=== PATIENT | male | born 1965 | race African-American/Black ===

== ENCOUNTER 2017-10-12 10:35 | Emergency (ER) | payer MEDICAID, OTHER ==
[~2017-10-12] VITALS: Ht 180.3 cm; Wt 90.0 kg
[2017-10-12] MEDS ORDERED: LORAZEPAM 2MG/ML CPJ IM ONE (12:45)
[2017-10-12 13:19] LABS: BASOPHILS % 0.7 % (0.0-2.0); EOSINOPHILS % 0.1 % (0.0-5.0); HEMATOCRIT. 41.1 % (42.0-52.0); HEMOGLOBIN. 13.5 g/dL (14.0-18.0); LYMPHOCYTES % 21.2 % (20.0-50.0); MEAN CORPUSCULAR HEMOGLOBIN 28.5 pg (28.0-32.0); MEAN CORPUSCULAR VOLUME 86.6 fL (80.0-94.0); MEAN PLATELET VOLUME 7.7 fl (7.4-10.4); MONOCYTES % 5.9 % (2.0-8.0); NEUTROPHILS % 72.1 % (40.0-76.0); PLATELET 335 x1000/uL (130-400); RED BLOOD CELL COUNT 4.75 mill/uL (4.7-6.1); RED CELL DISTRIBUTION WIDTH 13.5 % (11.6-14.6)
[2017-10-12 13:24] LABS: CHLORIDE 107 mEq/L (98-107)
[2017-10-12 13:33] LABS: ETHANOL BLOOD < 10 mg/dL
[2017-10-12 14:15] VITALS: BP 125/70
== END 2017-10-12 14:34 | disposition home or self-care (01) ==
LOC: ER 11:05
DX: Z00.00 Encounter for general adult medical examination without abnormal findings (principal); F17.200 Nicotine dependence, unspecified, uncomplicated
CPT/HCPCS: 36415; 71045; 80053; 80307; 80329; 85025; 96372; 99285; G0482; J2060

== ENCOUNTER 2018-05-17 03:41 | Emergency (ER) | payer MEDICAID ==
[~2018-05-17] VITALS: Ht 180.3 cm; Wt 80.0 kg
[2018-05-17] MEDS ORDERED: ONDANSETRON 4MG ODT PO STA (06:29)
[2018-05-17] MEDS ORDERED: IBUPROFEN 600MG TABLET PO STA (06:29)
[2018-05-17] MEDS ORDERED: FAMOTIDINE 20MG TABLET PO ONE (06:30)
[2018-05-17 07:16] LABS: CLARITY URINE CLEAR (CLEAR); COLOR URINE YELLOW (YELLOW); KETONES URINE NEGATIVE (NEGATIVE); LEUKOCYTE ESTERASE URINE NEGATIVE (NEGATIVE); NITRITE URINE NEGATIVE (NEGATIVE); OCCULT BLOOD URINE TRACE (NEGATIVE); PROTEIN URINE NEGATIVE (NEGATIVE)
[2018-05-17 07:16] LABS: BASOPHILS % 0.8 % (0.0-2.0); EOSINOPHILS % 1.1 % (0.0-5.0); HEMATOCRIT. 35.9 % (42.0-52.0); HEMOGLOBIN. 11.9 g/dL (14.0-18.0); LYMPHOCYTES % 28.9 % (20.0-50.0); MEAN CORPUSCULAR HEMOGLOBIN 28.5 pg (28.0-32.0); MEAN PLATELET VOLUME 7.8 fl (7.4-10.4); MONOCYTES % 7.2 % (2.0-8.0); PLATELET 301 x1000/uL (130-400); RED BLOOD CELL COUNT 4.18 mill/uL (4.7-6.1); RED CELL DISTRIBUTION WIDTH 13.7 % (11.6-14.6)
[2018-05-17 07:19] LABS: CHLORIDE 108 mEq/L (98-107)
[2018-05-17 07:35] VITALS: BP 101/49
== END 2018-05-17 08:23 | disposition home or self-care (01) ==
LOC: ER 03:41
DX: R10.9 Unspecified abdominal pain (principal); R11.2 Nausea with vomiting, unspecified; F17.200 Nicotine dependence, unspecified, uncomplicated; F12.10 Cannabis abuse, uncomplicated
CPT/HCPCS: 36415; 80053; 81003; 83690; 85025; 99284; Q0162

== ENCOUNTER 2018-06-02 02:50 | Emergency (ER) | payer MEDICAID ==
[~2018-06-02] VITALS: Ht 177.8 cm; Wt 77.0 kg
[2018-06-02 03:16] VITALS: BP 114/68
== END 2018-06-02 05:30 | disposition left against medical advice (07) ==
LOC: ER 02:50
DX: R51 Headache (principal); Z53.21 Procedure and treatment not carried out due to patient leaving prior to being seen by health care provider

== ENCOUNTER 2018-06-04 18:58 | Emergency (ER) | payer MEDICAID | END 2018-06-04 22:58 | disposition left against medical advice (07) | LOC: ER 18:58 | DX: M54.9 Dorsalgia, unspecified (principal); Z53.21 Procedure and treatment not carried out due to patient leaving prior to being seen by health care provider ==

== ENCOUNTER 2018-06-14 02:29 | Emergency (ER) | payer MEDICAID ==
[~2018-06-14] VITALS: Ht 177.8 cm; Wt 77.0 kg
[2018-06-14 05:43] VITALS: BP 108/40
== END 2018-06-14 06:30 | disposition left against medical advice (07) ==
LOC: ER 02:29
DX: Z53.21 Procedure and treatment not carried out due to patient leaving prior to being seen by health care provider (principal)

== ENCOUNTER 2018-06-14 07:46 | Emergency (ER) | payer MEDICAID ==
[~2018-06-14] VITALS: Ht 177.8 cm; Wt 69.0 kg
[2018-06-14 08:01] VITALS: BP 140/78
== END 2018-06-14 10:13 | disposition left against medical advice (07) ==
LOC: ER 08:28
DX: Z53.21 Procedure and treatment not carried out due to patient leaving prior to being seen by health care provider (principal)

== ENCOUNTER 2018-06-24 02:20 | Emergency (ER) | payer MEDICAID ==
[~2018-06-24] VITALS: Ht 177.8 cm; Wt 75.0 kg
[2018-06-24 05:14] VITALS: BP 113/90
== END 2018-06-24 05:21 | disposition home or self-care (01) ==
LOC: ER 02:20
DX: H61.22 Impacted cerumen, left ear (principal); F17.210 Nicotine dependence, cigarettes, uncomplicated; F12.90 Cannabis use, unspecified, uncomplicated; H93.12 Tinnitus, left ear; Z87.828 Personal history of other (healed) physical injury and trauma
CPT/HCPCS: 99283

== ENCOUNTER 2018-07-17 20:32 | Emergency (ER) | payer MEDICAID ==
[~2018-07-17] VITALS: Ht 177.8 cm; Wt 80.0 kg
[2018-07-17 23:02] VITALS: BP 120/84
== END 2018-07-18 00:16 | disposition left against medical advice (07) ==
LOC: ER 21:06
DX: M54.9 Dorsalgia, unspecified (principal); Z53.21 Procedure and treatment not carried out due to patient leaving prior to being seen by health care provider

== ENCOUNTER 2018-07-20 22:18 | Emergency (ER) | payer MEDICAID ==
[~2018-07-20] VITALS: Ht 177.8 cm; Wt 79.0 kg
[2018-07-20 23:15] VITALS: BP 137/83
== END 2018-07-21 02:41 | disposition left against medical advice (07) ==
LOC: ER 22:18
DX: Z53.21 Procedure and treatment not carried out due to patient leaving prior to being seen by health care provider (principal)

== ENCOUNTER 2018-07-26 18:16 | Emergency (ER) | payer MEDICAID ==
[~2018-07-26] VITALS: Ht 177.8 cm; Wt 77.0 kg
[2018-07-26 18:36] VITALS: BP 128/68
== END 2018-07-26 20:39 | disposition left against medical advice (07) ==
LOC: ER 18:16
DX: M79.645 Pain in left finger(s) (principal); Z53.21 Procedure and treatment not carried out due to patient leaving prior to being seen by health care provider

== ENCOUNTER 2018-07-27 01:32 | Emergency (ER) | payer MEDICAID ==
[~2018-07-27] VITALS: Ht 177.8 cm; Wt 73.0 kg
[2018-07-27 02:08] VITALS: BP 116/66
== END 2018-07-27 08:01 | disposition left against medical advice (07) ==
LOC: ER 01:32
DX: M79.645 Pain in left finger(s) (principal); Z53.21 Procedure and treatment not carried out due to patient leaving prior to being seen by health care provider

== ENCOUNTER 2018-07-27 18:13 | Emergency (ER) | payer MEDICAID ==
[~2018-07-27] VITALS: Ht 177.8 cm; Wt 77.0 kg
[2018-07-27] MEDS ORDERED: IBUPROFEN 600MG TABLET PO ONE (20:15)
[2018-07-27] MEDS ORDERED: ONDANSETRON 4MG ODT PO ONE (20:45)
[2018-07-27 22:01] VITALS: BP 126/61
== END 2018-07-27 23:45 | disposition home or self-care (01) ==
LOC: ER 18:41
DX: S69.92XA Unspecified injury of left wrist, hand and finger(s), initial encounter (principal); F12.10 Cannabis abuse, uncomplicated; X58.XXXA Exposure to other specified factors, initial encounter; Y93.89 Activity, other specified; Y92.89 Other specified places as the place of occurrence of the external cause; Y99.8 Other external cause status
CPT/HCPCS: 29130; 73130; 99283; Q0162

== ENCOUNTER 2018-07-29 21:48 | Emergency (ER) | payer MEDICAID | END 2018-07-29 23:33 | disposition left against medical advice (07) | LOC: ER 21:48 | DX: Z53.21 Procedure and treatment not carried out due to patient leaving prior to being seen by health care provider (principal) ==

== ENCOUNTER 2018-07-31 00:15 | Emergency (ER) | payer MEDICAID ==
[~2018-07-31] VITALS: Ht 170.2 cm; Wt 77.0 kg
[2018-07-31 06:36] VITALS: BP 122/78
== END 2018-07-31 07:25 | disposition left against medical advice (07) ==
LOC: ER 00:15
DX: Z53.21 Procedure and treatment not carried out due to patient leaving prior to being seen by health care provider (principal)

== ENCOUNTER 2018-08-05 21:40 | Emergency (ER) | payer MEDICAID | END 2018-08-05 23:35 | disposition left against medical advice (07) | LOC: ER 21:40 | DX: Z53.21 Procedure and treatment not carried out due to patient leaving prior to being seen by health care provider (principal) ==

== ENCOUNTER 2018-08-06 22:41 | Emergency (ER) | payer MEDICAID ==
[~2018-08-06] VITALS: Ht 177.8 cm; Wt 78.0 kg
[2018-08-06 23:25] VITALS: BP 131/72
== END 2018-08-07 00:14 | disposition home or self-care (01) ==
LOC: ER 22:41
DX: M20.012 Mallet finger of left finger(s) (principal); R03.0 Elevated blood-pressure reading, without diagnosis of hypertension; F12.90 Cannabis use, unspecified, uncomplicated; F17.210 Nicotine dependence, cigarettes, uncomplicated
CPT/HCPCS: 29130; 99283

== ENCOUNTER 2018-08-07 08:55 | Emergency (ER) | payer MEDICAID | END 2018-08-07 10:36 | disposition left against medical advice (07) | LOC: ER 09:04 | DX: Z53.21 Procedure and treatment not carried out due to patient leaving prior to being seen by health care provider (principal) ==

== ENCOUNTER 2018-08-08 00:30 | Emergency (ER) | payer MEDICAID ==
[~2018-08-08] VITALS: Ht 177.8 cm; Wt 75.0 kg
[2018-08-08 06:00] VITALS: BP 140/78
== END 2018-08-08 09:05 | disposition left against medical advice (07) ==
LOC: ER 00:30
DX: M79.642 Pain in left hand (principal); Z53.21 Procedure and treatment not carried out due to patient leaving prior to being seen by health care provider

== ENCOUNTER 2018-08-10 01:16 | Emergency (ER) | payer MEDICAID | END 2018-08-10 05:45 | disposition left against medical advice (07) | LOC: ER 05:45 | DX: R53.1 Weakness (principal); Z53.21 Procedure and treatment not carried out due to patient leaving prior to being seen by health care provider ==

== ENCOUNTER 2018-08-17 02:26 | Emergency (ER) | payer MEDICAID | END 2018-08-17 04:12 | disposition left against medical advice (07) | LOC: ER 02:26 | DX: Z53.21 Procedure and treatment not carried out due to patient leaving prior to being seen by health care provider (principal) ==

== ENCOUNTER 2018-09-10 03:26 | Emergency (ER) | payer MEDICAID | END 2018-09-10 05:16 | disposition left against medical advice (07) | LOC: ER 03:26 | DX: Z53.21 Procedure and treatment not carried out due to patient leaving prior to being seen by health care provider (principal) ==

== ENCOUNTER 2018-09-16 01:05 | Emergency (ER) | payer MEDICAID ==
[~2018-09-16] VITALS: Ht 177.8 cm; Wt 77.0 kg
[2018-09-16 07:07] VITALS: BP 132/75
== END 2018-09-16 09:05 | disposition home or self-care (01) ==
LOC: ER 01:05
DX: J02.9 Acute pharyngitis, unspecified (principal); F17.200 Nicotine dependence, unspecified, uncomplicated; F12.10 Cannabis abuse, uncomplicated
CPT/HCPCS: 99283

== ENCOUNTER 2018-09-18 23:41 | Emergency (ER) | payer MEDICAID ==
[~2018-09-18] VITALS: Ht 180.3 cm; Wt 78.0 kg
[2018-09-19 01:09] VITALS: BP 124/74
== END 2018-09-19 02:50 | disposition left against medical advice (07) ==
LOC: ER 23:41
DX: J02.9 Acute pharyngitis, unspecified (principal); Z53.21 Procedure and treatment not carried out due to patient leaving prior to being seen by health care provider

== ENCOUNTER 2018-09-20 22:55 | Emergency (ER) | payer MEDICAID ==
[~2018-09-20] VITALS: Ht 177.8 cm; Wt 77.3 kg
[2018-09-21 00:40] VITALS: BP 125/76
== END 2018-09-21 02:14 | disposition home or self-care (01) ==
LOC: ER 22:55
DX: B34.9 Viral infection, unspecified (principal); F17.200 Nicotine dependence, unspecified, uncomplicated; F12.10 Cannabis abuse, uncomplicated
CPT/HCPCS: 29130; 99283

== ENCOUNTER 2018-10-25 09:18 | Emergency (ER) | payer MEDICAID | END 2018-10-25 10:08 | disposition left against medical advice (07) | LOC: ER 09:18 | DX: Z53.21 Procedure and treatment not carried out due to patient leaving prior to being seen by health care provider (principal) ==

== ENCOUNTER 2021-11-22 00:59 | Emergency (ER) | payer MEDICAID | END 2021-11-22 01:45 | disposition left against medical advice (07) | LOC: ER 00:59 | DX: Z53.21 Procedure and treatment not carried out due to patient leaving prior to being seen by health care provider (principal) ==

== ENCOUNTER 2021-11-28 23:43 | Emergency (ER) | payer MEDICAID | END 2021-11-29 01:20 | disposition left against medical advice (07) | LOC: ER 23:43 | DX: Z53.21 Procedure and treatment not carried out due to patient leaving prior to being seen by health care provider (principal) ==

== ENCOUNTER 2021-12-02 22:43 | Emergency (ER) | payer MEDICAID | END 2021-12-02 23:38 | disposition left against medical advice (07) | LOC: ER 22:43 | DX: Z53.21 Procedure and treatment not carried out due to patient leaving prior to being seen by health care provider (principal) ==

== ENCOUNTER 2021-12-04 00:19 | Emergency (ER) | payer MEDICAID ==
[~2021-12-04] VITALS: Ht 175.3 cm; Wt 71.8 kg
[2021-12-04 00:48] VITALS: BP 126/54
[2021-12-04] MEDS ORDERED: TOPUD PO (05:53)
[2021-12-04] MEDS ORDERED: ACETAMINOPHEN 325MG TABLET PO ONE (06:00)
== END 2021-12-04 06:50 | disposition home or self-care (01) ==
LOC: ER 00:19
DX: G89.29 Other chronic pain (principal); M54.59 Other low back pain
CPT/HCPCS: 99282

== ENCOUNTER 2021-12-07 00:54 | Emergency (ER) | payer MEDICAID ==
[~2021-12-07] VITALS: Ht 177.8 cm; Wt 73.7 kg
[~2021-12-07 00:54] MED LIST: TOPUD PO
[2021-12-07 02:09] VITALS: BP 106/62
== END 2021-12-07 06:12 | disposition left against medical advice (07) ==
LOC: ER 00:54
DX: Z53.21 Procedure and treatment not carried out due to patient leaving prior to being seen by health care provider (principal)

== ENCOUNTER 2021-12-08 23:01 | Emergency (ER) | payer MEDICAID, OTHER ==
[~2021-12-08] VITALS: Ht 180.3 cm; Wt 73.0 kg
[2021-12-09] MEDS ORDERED: ACETAMINOPHEN 325MG TABLET PO ONE (02:00)
[2021-12-09] MEDS ORDERED: METOCLOPRAMIDE HCL 10MG TABLET PO ONE (02:00)
[2021-12-09] MEDS ORDERED: DIPHENHYDRAMINE 25MG CAPSULE PO ONE (02:00)
[2021-12-09] MEDS ORDERED: METO-293 MT (03:35)
[2021-12-09] MEDS ORDERED: IBUP-2029 MT (03:35)
[2021-12-09 03:56] VITALS: BP 102/60
== END 2021-12-09 04:00 | disposition home or self-care (01) ==
LOC: ER 23:01
DX: R51.9 Headache, unspecified (principal); H61.22 Impacted cerumen, left ear
CPT/HCPCS: 70480; 99284; J8597; Q0163

== ENCOUNTER 2021-12-09 23:40 | Emergency (ER) | payer OTHER ==
[~2021-12-09 23:40] MED LIST changes: +IBUP-2029 MT; +METO-293 MT
== END 2021-12-10 05:06 | disposition left against medical advice (07) ==
LOC: ER 23:40
DX: Z53.21 Procedure and treatment not carried out due to patient leaving prior to being seen by health care provider (principal)

== ENCOUNTER 2021-12-28 02:02 | Emergency (ER) | payer OTHER | END 2021-12-28 03:46 | disposition left against medical advice (07) | LOC: ER 02:02 | DX: Z53.21 Procedure and treatment not carried out due to patient leaving prior to being seen by health care provider (principal) ==

== ENCOUNTER 2022-01-04 10:34 | Emergency (ER) | payer OTHER ==
[~2022-01-04] VITALS: Ht 177.8 cm; Wt 90.0 kg
[2022-01-04 10:43] VITALS: BP 118/73
== END 2022-01-04 17:35 | disposition left against medical advice (07) ==
LOC: ER 10:34
DX: Z53.21 Procedure and treatment not carried out due to patient leaving prior to being seen by health care provider (principal); R07.9 Chest pain, unspecified; R06.02 Shortness of breath; R10.9 Unspecified abdominal pain
CPT/HCPCS: 93005; 99283

== ENCOUNTER 2022-01-07 00:36 | Emergency (ER) | payer MEDICAID, OTHER ==
[~2022-01-07] VITALS: Ht 177.8 cm; Wt 73.0 kg
[2022-01-07 00:55] VITALS: BP 95/58
== END 2022-01-07 03:21 | disposition left against medical advice (07) ==
LOC: ER 01:04
DX: Z53.21 Procedure and treatment not carried out due to patient leaving prior to being seen by health care provider (principal)

== ENCOUNTER 2022-05-22 22:08 | Emergency (ER) | payer MEDICAID | END 2022-05-23 00:18 | disposition left against medical advice (07) | LOC: ER 22:08 | DX: R68.89 Other general symptoms and signs (principal); Z53.21 Procedure and treatment not carried out due to patient leaving prior to being seen by health care provider ==